=== PATIENT | female | born 1965 | race Caucasian/White ===

== ENCOUNTER 2019-04-04 08:21 | Outpatient (CLI) | payer OTHER ==
[2019-04-04 09:37] LABS: BASOPHILS % (AUTO) 0.4 % (0-1); EOSINOPHILS # (AUTO) 0.1 X10'3 (0-0.9); EOSINOPHILS % (AUTO) 2.2 % (0-6); HEMATOCRIT 43.2 % (35.0-45.0); HEMOGLOBIN 14.7 g/dl (12.0-16.0); LYMPHOCYTES # (AUTO) 1.4 X10'3 (1.1-4.8); MEAN CORPUSCULAR HEMOGLOBIN 32.4 PG (27.0-31.0); MEAN CORPUSCULAR HGB CONC 34.1 g/dL (33.0-36.5); MEAN PLATELET VOLUME 7.2 FL (7.4-10.4); MONOCYTES # (AUTO) 0.5 X10'3 (0-0.9); MONOCYTES % (AUTO) 9.6 % (2-12); NEUTROPHILS # (AUTO) 3.2 X10'3 (1.8-7.7); NEUTROPHILS % (AUTO) 61.8 % (42-75); PLATELET COUNT 296 X10'3 (140-440); RED BLOOD COUNT 4.55 X10'6 (4.20-5.60); RED CELL DISTRIBUTION WIDTH 13.4 % (11.5-14.5); WHITE BLOOD COUNT 5.2 X10'3 (4.5-11.0)
[2019-04-04 09:58] LABS: ALANINE AMINOTRANSFERASE 35 U/L (12-78); ALBUMIN 3.8 G/DL (3.4-5.0); ALBUMIN/GLOBULIN RATIO 1.1 (1.1-1.5); ALKALINE PHOSPHATASE 76 IU/L (46-116); ANION GAP 9 (8-16); ASPARTATE AMINO TRANSFERASE 20 U/L (10-37); BILIRUBIN,TOTAL 0.7 MG/DL (0.1-1.0); BLOOD UREA NITROGEN 14 MG/DL (7-18); BUN/CREATININE RATIO 14.9 (6.6-38.0); CALCIUM 8.3 MG/DL (8.5-10.1); CHLORIDE 108 MMOL/L (99-107); CHOL/HDL RATIO 3.3 (0.00-4.99); CHOLESTEROL 237 MG/DL (0-200); CREATININE 0.94 MG/DL (0.40-0.90); GLUCOSE 96 MG/DL (70-104); HDL CHOLESTEROL 72 MG/DL (35-60); LDL CHOLESTEROL 145 MG/DL (50-100); POTASSIUM 4.1 MMOL/L (3.5-5.1); SODIUM 141 MMOL/L (135-145); TOTAL CARBON DIOXIDE 24.3 MMOL/L (24-32); TOTAL PROTEIN 7.4 G/DL (6.4-8.2); TRIGLYCERIDES 131 MG/DL (20-135); eGFR 62 ML/MIN
[2019-04-04 15:06] LABS: CLARITY,URINE CLOUDY (Clear); COLOR,URINE YELLOW (Yellow); GLUCOSE, URINE NEGATIVE (Neg); KETONES,URINE NEGATIVE (Neg); LEUKOCYTE ESTERASE ,URINE NEGATIVE (Neg); NITRITES, URINE NEGATIVE (Neg); OCCULT BLOOD,URINE NEGATIVE (Neg); PH,URINE 7.5 (4.8-8.0); PROTEIN,URINE NEGATIVE (Neg); UROBILINOGEN,URINE 0.2 E.U/dL (0.2-1.0)
[2019-04-04 15:07] LABS: UA COLLECTION TYPE CLN CATCH MIDSTREAM
[2019-04-04 15:26] LABS: WBC,URINE 0-4 /HPF (0-4)
[2019-04-04 15:27] LABS: BACTERIA,URINE 1+ /HPF (Neg); MUCUS STRANDS FEW /LPF (Neg); RBC,URINE 0-2 /HPF (0-2); SQUAMOUS EPITHELIAL CELL,UR MODERATE /LPF (FEW)
[2019-04-04 15:28] LABS: AMORPHOUS PHOSPHATES 2+
== END 2019-04-04 23:59 | disposition home or self-care (01) ==
LOC: LAB 08:21
PROVIDERS: ATTEND Family Medicine
DX: R53.83 Other fatigue (principal); Z76.89 Persons encountering health services in other specified circumstances
CPT/HCPCS: 36415; 80053; 80061; 81001; 84439; 84443; 85025

== ENCOUNTER 2019-04-17 07:17 | Day surgery (SDC) | payer OTHER ==
[~2019-04-17] VITALS: Ht 162.6 cm; Wt 68.6 kg
[2019-04-17 07:25] VITALS: BP 125/75
[2019-04-17] MEDS ORDERED: LIDOcaine Viscous 15ml cup ONE (07:30)
[2019-04-17] MEDS ORDERED: MIDAZolam 5mg/5ml vial ONE (07:30)
[2019-04-17] MEDS ORDERED: fentaNYL/PF 50MCG/1 ML 2ML syringe ONE (07:30)
[2019-04-17] MEDS ORDERED: HORMONES (07:38)
[2019-04-17] MEDS ORDERED: TEST200V10 IM (07:39)
[2019-04-17] MEDS ORDERED: LORA10TA65 PO (07:39)
[2019-04-17] MEDS ORDERED: MULT-955 PO (07:40)
[2019-04-17 09:34] VITALS: BP 111/65
[2019-04-17 09:44] VITALS: BP 108/70
[2019-04-17 09:54] VITALS: BP 114/71
[2019-04-17 10:04] VITALS: BP 114/66
== END 2019-04-17 10:10 | disposition home or self-care (01) ==
LOC: GI LAB 07:17
PROVIDERS: ATTEND Internal Medicine Gastroenterology
DX: Z12.11 Encounter for screening for malignant neoplasm of colon (principal); K57.30 Diverticulosis of large intestine without perforation or abscess without bleeding; K64.8 Other hemorrhoids; K31.7 Polyp of stomach and duodenum; K21.9 Gastro-esophageal reflux disease without esophagitis; K29.50 Unspecified chronic gastritis without bleeding
CPT/HCPCS: 43239; 43251; 45378; 99152; 99153; C1773; J2250; J3010; J7040; A4620

== ENCOUNTER 2020-07-08 09:15 | Outpatient (CLI) | payer BC ==
[~2020-07-08 09:15] MED LIST: HORMONES; LORA10TA65 PO; MULT-955 PO; TEST200V10 IM
[2020-07-08 10:19] LABS: BASOPHILS % (AUTO) 0.5 % (0-1); EOSINOPHILS # (AUTO) 0.1 X10'3 (0-0.9); HEMATOCRIT 42.7 % (35.0-45.0); HEMOGLOBIN 14.7 g/dl (12.0-16.0); LYMPHOCYTES # (AUTO) 1.3 X10'3 (1.1-4.8); LYMPHOCYTES % (AUTO) 28.6 % (21-51); MEAN CORPUSCULAR HEMOGLOBIN 32.8 PG (27.0-31.0); MEAN CORPUSCULAR HGB CONC 34.3 g/dL (33.0-36.5); MEAN CORPUSCULAR VOLUME 95.6 FL (78-98); MEAN PLATELET VOLUME 7.3 FL (7.4-10.4); MONOCYTES # (AUTO) 0.5 X10'3 (0-0.9); MONOCYTES % (AUTO) 10.7 % (2-12); NEUTROPHILS # (AUTO) 2.6 X10'3 (1.8-7.7); NEUTROPHILS % (AUTO) 58.2 % (42-75); PLATELET COUNT 345 X10'3 (140-440); RED BLOOD COUNT 4.47 X10'6 (4.20-5.60); RED CELL DISTRIBUTION WIDTH 13.3 % (11.5-14.5); WHITE BLOOD COUNT 4.5 X10'3 (4.5-11.0)
[2020-07-08 10:24] LABS: HEMOGLOBIN A1C 5.6 % (4.5-6.2)
[2020-07-08 10:40] LABS: ALANINE AMINOTRANSFERASE 44 U/L (12-78); ALBUMIN 3.8 G/DL (3.4-5.0); ALKALINE PHOSPHATASE 104 IU/L (46-116); ANION GAP 6 (8-16); ASPARTATE AMINO TRANSFERASE 26 U/L (10-37); BLOOD UREA NITROGEN 13 MG/DL (7-18); BUN/CREATININE RATIO 14.3 (6.6-38.0); CALCIUM 8.5 MG/DL (8.5-10.1); CHLORIDE 106 MMOL/L (99-107); CREATININE 0.91 MG/DL (0.40-0.90); GLUCOSE 103 MG/DL (70-104); MAGNESIUM 2.2 MG/DL (1.5-2.4); POTASSIUM 4.1 MMOL/L (3.5-5.1); SODIUM 138 MMOL/L (135-145); TOTAL CARBON DIOXIDE 26.5 MMOL/L (24-32); TOTAL PROTEIN 7.5 G/DL (6.4-8.2); eGFR 64 ML/MIN
[2020-07-09 14:48] LABS: ESTRADIOL 75.6 pg/mL (.); PROGESTERONE 2.7 ng/mL (.); THIIODOTHRONINE, FREE, SERUM 9.5 pg/mL (2.0-4.4)
[2020-07-10 14:54] LABS: ACTH, PLASMA 24.8 pg/mL (7.2-63.3)
== END 2020-07-08 23:59 | disposition home or self-care (01) ==
LOC: LAB 09:15
PROVIDERS: ATTEND Anesthesiology
DX: E06.3 Autoimmune thyroiditis (principal); E06.9 Thyroiditis, unspecified; E03.9 Hypothyroidism, unspecified
CPT/HCPCS: 36415; 80053; 82024; 82306; 82670; 82679; 83036; 83735; 84144; 84439; 84443; 84481; 84482; 85025

== ENCOUNTER 2021-07-01 13:55 | Outpatient (CLI) | payer BC ==
[~2021-07-01 13:55] MED LIST changes: -TEST200V10 IM; +TEST200V33 IM
[2021-07-03 21:44] LABS: HBSAG SCREEN Negative (Negative); HEP A AB, IGM Negative (Negative); HEPATITIS C ANTIBODY <0.1 s/co ratio (0.0-0.9)
== END 2021-07-01 23:59 | disposition home or self-care (01) ==
LOC: LAB 13:55
PROVIDERS: ATTEND Obstetrics & Gynecology
DX: Z11.8 Encounter for screening for other infectious and parasitic diseases (principal); Z11.3 Encounter for screening for infections with a predominantly sexual mode of transmission; Z11.4 Encounter for screening for human immunodeficiency virus [HIV]
CPT/HCPCS: 36415; 80074; 86592; 86695; 86696; 86703; 87389

== ENCOUNTER 2021-07-08 07:30 | Outpatient (CLI) | payer BC ==
[2021-07-08 08:39] LABS: BASOPHILS % (AUTO) 0.4 % (0-1); HEMATOCRIT 43.6 % (35.0-45.0); LYMPHOCYTES # (AUTO) 1.1 X10'3 (1.1-4.8); MEAN CORPUSCULAR HEMOGLOBIN 33.5 PG (27.0-31.0); MEAN CORPUSCULAR HGB CONC 34.4 g/dL (33.0-36.5); MEAN CORPUSCULAR VOLUME 97.2 FL (78-98); MEAN PLATELET VOLUME 7.3 FL (7.4-10.4); MONOCYTES # (AUTO) 0.5 X10'3 (0-0.9); MONOCYTES % (AUTO) 10.5 % (2-12); NEUTROPHILS # (AUTO) 2.8 X10'3 (1.8-7.7); NEUTROPHILS % (AUTO) 63.1 % (42-75); PLATELET COUNT 358 X10'3 (140-440); RED BLOOD COUNT 4.49 X10'6 (4.20-5.60); RED CELL DISTRIBUTION WIDTH 13.7 % (11.5-14.5); WHITE BLOOD COUNT 4.4 X10'3 (4.5-11.0)
[2021-07-08 09:19] LABS: % IRON SATURATION 38 % (11-46); IRON 121 UG/DL (49-151); TOTAL IRON BINDING CAPACITY 321 UG/DL (259-388)
[2021-07-08 09:35] LABS: ALANINE AMINOTRANSFERASE 39 U/L (12-78); ALBUMIN 4.1 G/DL (3.4-5.0); ALBUMIN/GLOBULIN RATIO 1.1 (1.1-1.5); ALKALINE PHOSPHATASE 91 IU/L (46-116); ANION GAP 9 (8-16); ASPARTATE AMINO TRANSFERASE 20 U/L (10-37); BILIRUBIN,TOTAL 0.7 MG/DL (0.1-1.0); BLOOD UREA NITROGEN 13 MG/DL (7-18); BUN/CREATININE RATIO 13.1 (6.6-38.0); CALCIUM 8.7 MG/DL (8.5-10.1); CHLORIDE 103 MMOL/L (99-107); CREATININE 0.99 MG/DL (0.40-0.90); FERRITIN 168 NG/ML (8-252); GLUCOSE 93 MG/DL (70-104); LDL CHOLESTEROL 127 MG/DL (50-100); MAGNESIUM 2.4 MG/DL (1.5-2.4); POTASSIUM 4.2 MMOL/L (3.5-5.1); SODIUM 138 MMOL/L (135-145); TOTAL CARBON DIOXIDE 25.9 MMOL/L (24-32); eGFR 58 ML/MIN
[2021-07-08 09:43] LABS: CLARITY,URINE CLEAR (Clear); COLOR,URINE YELLOW (Yellow); GLUCOSE, URINE NEGATIVE (Neg); KETONES,URINE TRACE mg/dl (Neg); LEUKOCYTE ESTERASE ,URINE NEGATIVE (Neg); NITRITES, URINE NEGATIVE (Neg); OCCULT BLOOD,URINE NEGATIVE (Neg); PH,URINE 6.5 (4.8-8.0); PROTEIN,URINE NEGATIVE (Neg); UROBILINOGEN,URINE 0.2 E.U/dL (0.2-1.0)
[2021-07-08 09:49] LABS: UA COLLECTION TYPE CLN CATCH MIDSTREAM
[2021-07-08 09:55] LABS: HEMOGLOBIN A1C 5.3 % (4.5-6.2)
[2021-07-09 14:57] LABS: PROGESTERONE 2.4 ng/mL (.); THIIODOTHRONINE, FREE, SERUM 1.7 pg/mL (2.0-4.4)
== END 2021-07-08 23:59 | disposition home or self-care (01) ==
LOC: LAB 07:30
PROVIDERS: ATTEND Anesthesiology
DX: Z13.21 Encounter for screening for nutritional disorder (principal); E55.9 Vitamin D deficiency, unspecified; E28.0 Estrogen excess; E34.9 Endocrine disorder, unspecified; I10 Essential (primary) hypertension; R73.01 Impaired fasting glucose; R79.1 Abnormal coagulation profile; R68.89 Other general symptoms and signs; D50.9 Iron deficiency anemia, unspecified; R53.83 Other fatigue; R53.81 Other malaise
CPT/HCPCS: 36415; 80053; 81003; 82306; 82670; 82679; 82728; 83036; 83090; 83540; 83550; 83721; 83735; 84144; 84255; 84439; 84443; 84446; 84481; 84482; 84590; 84630; 85025; 86140

== ENCOUNTER 2021-11-24 13:19 | Outpatient (CLI) | payer BC ==
[2021-11-24 14:06] LABS: CLARITY,URINE SLIGHTLY CLOUDY (Clear); COLOR,URINE YELLOW (Yellow); GLUCOSE, URINE 100 mg/dl (Neg); KETONES,URINE NEGATIVE (Neg); LEUKOCYTE ESTERASE ,URINE LARGE (Neg); NITRITES, URINE POSITIVE (Neg); OCCULT BLOOD,URINE SMALL (Neg); PROTEIN,URINE 30 mg/dl (Neg)
[2021-11-24 14:15] LABS: UA COLLECTION TYPE CLN CATCH MIDSTREAM
[2021-11-24 14:16] LABS: WBC,URINE TNTC /HPF (0-4)
[2021-11-24 14:17] LABS: BACTERIA,URINE 4+ /HPF (Neg); MUCUS STRANDS NONE SEEN /LPF (Neg); SQUAMOUS EPITHELIAL CELL,UR FEW /LPF (FEW)
== END 2021-11-24 23:59 | disposition home or self-care (01) ==
LOC: LAB 13:19
PROVIDERS: ATTEND Anesthesiology
DX: R82.90 Unspecified abnormal findings in urine (principal); R82.79 Other abnormal findings on microbiological examination of urine
CPT/HCPCS: 81001; 87077; 87088; 87186

== ENCOUNTER 2022-04-15 06:57 | Outpatient (CLI) | payer BC ==
[2022-04-15 08:44] LABS: BASOPHILS % (AUTO) 0.4 % (0-1); EOSINOPHILS # (AUTO) 0.2 X10'3 (0-0.9); EOSINOPHILS % (AUTO) 2.7 % (0-6); HEMATOCRIT 43.9 % (35.0-45.0); HEMOGLOBIN 14.8 g/dl (12.0-16.0); LYMPHOCYTES # (AUTO) 1.4 X10'3 (1.1-4.8); LYMPHOCYTES % (AUTO) 22.3 % (21-51); MEAN CORPUSCULAR HGB CONC 33.8 g/dL (33.0-36.5); MEAN CORPUSCULAR VOLUME 97.6 FL (78-98); MEAN PLATELET VOLUME 7.7 FL (7.4-10.4); MONOCYTES # (AUTO) 0.6 X10'3 (0-0.9); MONOCYTES % (AUTO) 10.4 % (2-12); NEUTROPHILS % (AUTO) 64.2 % (42-75); PLATELET COUNT 315 X10'3 (140-440); RED CELL DISTRIBUTION WIDTH 13.1 % (11.5-14.5); WHITE BLOOD COUNT 6.2 X10'3 (4.5-11.0)
[2022-04-15 09:01] LABS: ALANINE AMINOTRANSFERASE 23 U/L (12-78); ALBUMIN 3.6 G/DL (3.4-5.0); ALBUMIN/GLOBULIN RATIO 1.1 (1.1-1.5); ALKALINE PHOSPHATASE 75 IU/L (46-116); ANION GAP 6 (8-16); ASPARTATE AMINO TRANSFERASE 20 U/L (10-37); BILIRUBIN,TOTAL 0.5 MG/DL (0.1-1.0); BLOOD UREA NITROGEN 13 MG/DL (7-18); BUN/CREATININE RATIO 13.8 (6.6-38.0); CALCIUM 8.1 MG/DL (8.5-10.1); CHLORIDE 107 MMOL/L (99-107); CHOL/HDL RATIO 3.3 (0.00-4.99); CHOLESTEROL 231 MG/DL (0-200); CREATININE 0.94 MG/DL (0.40-0.90); GLUCOSE 87 MG/DL (70-104); HDL CHOLESTEROL 71 MG/DL (35-60); LDL CHOLESTEROL 137 MG/DL (50-100); POTASSIUM 4.2 MMOL/L (3.5-5.1); SODIUM 139 MMOL/L (135-145); TOTAL CARBON DIOXIDE 25.7 MMOL/L (24-32); TRIGLYCERIDES 127 MG/DL (20-135); eGFR 62 ML/MIN
== END 2022-04-15 23:59 | disposition home or self-care (01) ==
LOC: LAB 06:57
PROVIDERS: ATTEND Internal Medicine
DX: E78.00 Pure hypercholesterolemia, unspecified (principal); E03.9 Hypothyroidism, unspecified; N95.1 Menopausal and female climacteric states; J30.9 Allergic rhinitis, unspecified; J45.990 Exercise induced bronchospasm; K63.5 Polyp of colon
CPT/HCPCS: 36415; 80053; 80061; 82607; 82746; 85025

== ENCOUNTER 2022-04-15 06:59 | Outpatient (CLI) | payer BC ==
[2022-04-15 09:04] LABS: HEMOGLOBIN A1C 5.5 % (4.5-6.2)
[2022-04-15 09:07] LABS: MAGNESIUM 2.3 MG/DL (1.5-2.4)
[2022-04-16 06:19] LABS: PROGESTERONE 3.5 ng/mL (.); THIIODOTHRONINE, FREE, SERUM 3.1 pg/mL (2.0-4.4)
[2022-04-24 16:19] LABS: VITAMIN K1 0.96 ng/mL (0.10-2.20)
== END 2022-04-15 23:59 | disposition home or self-care (01) ==
LOC: LAB 06:59
PROVIDERS: ATTEND Anesthesiology
DX: D50.9 Iron deficiency anemia, unspecified (principal); E55.9 Vitamin D deficiency, unspecified; E06.3 Autoimmune thyroiditis; R68.89 Other general symptoms and signs; R79.1 Abnormal coagulation profile; R73.01 Impaired fasting glucose; I10 Essential (primary) hypertension; E34.9 Endocrine disorder, unspecified; E28.0 Estrogen excess; E50.9 Vitamin A deficiency, unspecified; E56.0 Deficiency of vitamin E; E56.1 Deficiency of vitamin K
CPT/HCPCS: 36415; 82306; 82670; 82679; 83036; 83735; 84144; 84255; 84439; 84443; 84446; 84481; 84482; 84590; 84630

== ENCOUNTER 2022-04-15 07:00 | Outpatient (CLI) | payer BC ==
[2022-04-15 09:22] LABS: HIV ANTIBODY 1&2 RAPID NON-REACTIVE (Neg)
[2022-04-16 13:46] LABS: HBSAG SCREEN Negative (Negative); HEP A AB, IGM Negative (Negative)
== END 2022-04-15 23:59 | disposition home or self-care (01) ==
LOC: LAB 07:00
PROVIDERS: ATTEND Obstetrics & Gynecology
DX: Z11.3 Encounter for screening for infections with a predominantly sexual mode of transmission (principal); Z11.4 Encounter for screening for human immunodeficiency virus [HIV]; Z11.8 Encounter for screening for other infectious and parasitic diseases
CPT/HCPCS: 36415; 80074; 86592; 86695; 86696; 86703

== ENCOUNTER 2022-09-09 10:42 | Outpatient (CLI) | payer BC ==
[2022-09-09 11:38] LABS: ALANINE AMINOTRANSFERASE 26 U/L (12-78); ALBUMIN/GLOBULIN RATIO 1.1 (1.1-1.5); ALKALINE PHOSPHATASE 88 IU/L (46-116); ANION GAP 7 (8-16); ASPARTATE AMINO TRANSFERASE 20 U/L (10-37); BILIRUBIN,TOTAL 0.7 MG/DL (0.1-1.0); BLOOD UREA NITROGEN 11 MG/DL (7-18); BUN/CREATININE RATIO 11.6 (6.6-38.0); CALCIUM 8.5 MG/DL (8.5-10.1); CHLORIDE 103 MMOL/L (99-107); CHOL/HDL RATIO 3.1 (0.00-4.99); CHOLESTEROL 217 MG/DL (0-200); CREATININE 0.95 MG/DL (0.40-0.90); GLUCOSE 95 MG/DL (70-104); HDL CHOLESTEROL 70 MG/DL (35-60); LDL CHOLESTEROL 131 MG/DL (50-100); POTASSIUM 4.3 MMOL/L (3.5-5.1); SODIUM 137 MMOL/L (135-145); TOTAL CARBON DIOXIDE 27.2 MMOL/L (24-32); TOTAL PROTEIN 7.6 G/DL (6.4-8.2); TRIGLYCERIDES 114 MG/DL (20-135); eGFR 61 ML/MIN
[2022-09-09 11:47] LABS: EOSINOPHILS # (AUTO) 0.1 X10'3 (0-0.9); EOSINOPHILS % (AUTO) 2.1 % (0-6); HEMATOCRIT 45.2 % (35.0-45.0); HEMOGLOBIN 15.2 g/dl (12.0-16.0); LYMPHOCYTES # (AUTO) 1.2 X10'3 (1.1-4.8); LYMPHOCYTES % (AUTO) 25.1 % (21-51); MEAN CORPUSCULAR HEMOGLOBIN 32.4 PG (27.0-31.0); MEAN CORPUSCULAR HGB CONC 33.5 g/dL (33.0-36.5); MEAN CORPUSCULAR VOLUME 96.7 FL (78-98); MEAN PLATELET VOLUME 7.4 FL (7.4-10.4); MONOCYTES # (AUTO) 0.5 X10'3 (0-0.9); MONOCYTES % (AUTO) 11.6 % (2-12); NEUTROPHILS # (AUTO) 2.8 X10'3 (1.8-7.7); NEUTROPHILS % (AUTO) 60.2 % (42-75); PLATELET COUNT 343 X10'3 (140-440); RED BLOOD COUNT 4.68 X10'6 (4.20-5.60); RED CELL DISTRIBUTION WIDTH 13.4 % (11.5-14.5); WHITE BLOOD COUNT 4.7 X10'3 (4.5-11.0)
== END 2022-09-09 23:59 | disposition home or self-care (01) ==
LOC: LAB 10:42
PROVIDERS: ATTEND Internal Medicine
DX: E78.00 Pure hypercholesterolemia, unspecified (principal); E03.9 Hypothyroidism, unspecified; N95.1 Menopausal and female climacteric states; J30.9 Allergic rhinitis, unspecified; J45.990 Exercise induced bronchospasm; K63.5 Polyp of colon
CPT/HCPCS: 36415; 80053; 80061; 82607; 82746; 85025

== ENCOUNTER 2022-09-10 07:21 | Outpatient (CLI) | payer BC | END 2022-09-10 23:59 | disposition home or self-care (01) | LOC: LAB 07:21 | PROVIDERS: ATTEND Internal Medicine | DX: M54.50 Low back pain, unspecified (principal); M25.552 Pain in left hip; K57.90 Diverticulosis of intestine, part unspecified, without perforation or abscess without bleeding; E03.9 Hypothyroidism, unspecified; E78.00 Pure hypercholesterolemia, unspecified; N95.1 Menopausal and female climacteric states; J30.9 Allergic rhinitis, unspecified; K31.7 Polyp of stomach and duodenum; R63.5 Abnormal weight gain; Y93.23 Activity, snow (alpine) (downhill) skiing, snowboarding, sledding, tobogganing and snow tubing | CPT/HCPCS: 72100; 73502 ==

== ENCOUNTER 2023-01-13 07:20 | Outpatient (CLI) | payer BC ==
[2023-01-13 08:04] LABS: BASOPHILS % (AUTO) 0.6 % (0-1); EOSINOPHILS # (AUTO) 0.1 X10'3 (0-0.9); EOSINOPHILS % (AUTO) 2.7 % (0-6); HEMATOCRIT 44.2 % (35.0-45.0); HEMOGLOBIN 14.6 g/dl (12.0-16.0); LYMPHOCYTES # (AUTO) 1.3 X10'3 (1.1-4.8); LYMPHOCYTES % (AUTO) 25.7 % (21-51); MEAN CORPUSCULAR HEMOGLOBIN 32.4 PG (27.0-31.0); MEAN CORPUSCULAR HGB CONC 33.1 g/dL (33.0-36.5); MEAN CORPUSCULAR VOLUME 97.7 FL (78-98); MEAN PLATELET VOLUME 7.4 FL (7.4-10.4); MONOCYTES # (AUTO) 0.6 X10'3 (0-0.9); MONOCYTES % (AUTO) 11.1 % (2-12); NEUTROPHILS % (AUTO) 59.9 % (42-75); PLATELET COUNT 331 X10'3 (140-440); RED BLOOD COUNT 4.52 X10'6 (4.20-5.60); RED CELL DISTRIBUTION WIDTH 13.4 % (11.5-14.5); WHITE BLOOD COUNT 5.1 X10'3 (4.5-11.0)
[2023-01-13 08:22] LABS: HEMOGLOBIN A1C 5.4 % (4.5-6.2)
[2023-01-13 08:43] LABS: ALANINE AMINOTRANSFERASE 36 U/L (12-78); ALBUMIN 3.8 G/DL (3.4-5.0); ALBUMIN/GLOBULIN RATIO 1.1 (1.1-1.5); ALKALINE PHOSPHATASE 77 IU/L (46-116); ANION GAP 11 (8-16); ASPARTATE AMINO TRANSFERASE 22 U/L (10-37); BILIRUBIN,TOTAL 0.7 MG/DL (0.1-1.0); BLOOD UREA NITROGEN 13 MG/DL (7-18); BUN/CREATININE RATIO 13.4 (10.0-20.0); C-REACTIVE PROTEIN < 0.05 MG/DL (0.0-0.5); CALCIUM 8.8 MG/DL (8.5-10.1); CHLORIDE 102 MMOL/L (99-107); CREATININE 0.97 MG/DL (0.40-0.90); GLUCOSE 100 MG/DL (70-104); MAGNESIUM 2.1 MG/DL (1.5-2.4); POTASSIUM 3.9 MMOL/L (3.5-5.1); SODIUM 138 MMOL/L (135-145); TOTAL CARBON DIOXIDE 25.5 MMOL/L (24-32); TOTAL PROTEIN 7.4 G/DL (6.4-8.2); eGFR 59 ML/MIN
[2023-01-14 17:14] LABS: ESTRADIOL 90.8 pg/mL (.); PROGESTERONE 1.8 ng/mL (.); THIIODOTHRONINE, FREE, SERUM 3.8 pg/mL (2.0-4.4)
== END 2023-01-13 23:59 | disposition home or self-care (01) ==
LOC: LAB 07:20
PROVIDERS: ATTEND Anesthesiology
DX: I70.91 Generalized atherosclerosis (principal); E34.3 Short stature due to endocrine disorder; R79.82 Elevated C-reactive protein (CRP); E34.1 Other hypersecretion of intestinal hormones; R87.1 Abnormal level of hormones in specimens from female genital organs; N95.1 Menopausal and female climacteric states; R73.01 Impaired fasting glucose; N95.8 Other specified menopausal and perimenopausal disorders; E34.9 Endocrine disorder, unspecified; E02 Subclinical iodine-deficiency hypothyroidism
CPT/HCPCS: 36415; 80053; 82306; 82670; 82679; 83036; 83090; 83735; 83789; 84144; 84305; 84410; 84439; 84443; 84481; 84482; 85025; 86140

== ENCOUNTER 2023-01-25 10:17 | Day surgery (SDC) | payer BC ==
[2023-01-25] MEDS ORDERED: fentaNYL/PF 50MCG/1 ML 2ML syringe ONE (10:47)
[2023-01-25] MEDS ORDERED: LIDOcaine Viscous 15ml cup ONE (10:47)
[2023-01-25] MEDS ORDERED: MIDAZolam 1 MG/ML 5ML VIAL ONE (10:47)
[2023-01-25 10:53] VITALS: BP 129/74
[2023-01-25] MEDS ORDERED: PROG100C11 PO (10:55)
[2023-01-25] MEDS ORDERED: SYN0.088T PO (10:55)
[2023-01-25 13:25] VITALS: BP 108/71
[2023-01-25 13:35] VITALS: BP 111/72
[2023-01-25 13:45] VITALS: BP 120/64
[2023-01-25 13:55] VITALS: BP 113/69
[2023-01-26] MEDS ORDERED: LIOT50TA6 PO (13:14)
== END 2023-01-25 14:00 | disposition home or self-care (01) ==
LOC: GI LAB 10:17
PROVIDERS: ATTEND Internal Medicine Gastroenterology
DX: R10.9 Unspecified abdominal pain (principal); R11.0 Nausea; K62.1 Rectal polyp; K57.30 Diverticulosis of large intestine without perforation or abscess without bleeding; K64.8 Other hemorrhoids; K31.7 Polyp of stomach and duodenum; K29.70 Gastritis, unspecified, without bleeding; Z86.010 Personal history of colon polyps
CPT/HCPCS: 43239; 43251; 45380; 45385; 99152; 99153; C1889; J2250; J3010; J7030; Z7512; A4620

== ENCOUNTER 2024-03-17 07:01 | Emergency (ER) | payer BC ==
[~2024-03-17] VITALS: Ht 160 cm; Wt 72.1 kg
[~2024-03-17 07:01] MED LIST changes: +LIOT50TA6 PO; +PROG100C11 PO
[2024-03-17 07:05] VITALS: BP 123/84; PULSE 76; RESP 18; TEMP 97.8; O2SAT 99
== END 2024-03-17 07:58 | disposition home or self-care (01) ==
LOC: ER 07:01
DX: S90.32XA Contusion of left foot, initial encounter (principal); Z79.899 Other long term (current) drug therapy; X58.XXXA Exposure to other specified factors, initial encounter; Y93.89 Activity, other specified; Y92.89 Other specified places as the place of occurrence of the external cause; Y99.8 Other external cause status
CPT/HCPCS: 73630; 99283

== ENCOUNTER 2024-04-13 08:09 | Outpatient (CLI) | payer BC ==
[2024-04-13 09:10] LABS: BASOPHILS % (AUTO) 0.6 % (0-1); BILIRUBIN,URINE NEGATIVE (Neg); CLARITY,URINE SLIGHTLY CLOUDY (Clear); COLOR,URINE YELLOW (Yellow); EOSINOPHILS # (AUTO) 0.1 X10'3 (0-0.9); EOSINOPHILS % (AUTO) 2.7 % (0-6); GLUCOSE, URINE NEGATIVE (Neg); HEMATOCRIT 45.3 % (35.0-45.0); HEMOGLOBIN 15.2 g/dl (12.0-16.0); KETONES,URINE NEGATIVE (Neg); LEUKOCYTE ESTERASE ,URINE NEGATIVE (Neg); LYMPHOCYTES # (AUTO) 1.1 X10'3 (1.1-4.8); LYMPHOCYTES % (AUTO) 28.1 % (21-51); MEAN CORPUSCULAR HEMOGLOBIN 32.9 PG (27.0-31.0); MEAN CORPUSCULAR HGB CONC 33.5 g/dL (33.0-36.5); MEAN PLATELET VOLUME 7.4 FL (7.4-10.4); MONOCYTES # (AUTO) 0.4 X10'3 (0-0.9); MONOCYTES % (AUTO) 10.7 % (2-12); NEUTROPHILS # (AUTO) 2.3 X10'3 (1.8-7.7); NEUTROPHILS % (AUTO) 57.9 % (42-75); NITRITES, URINE NEGATIVE (Neg); OCCULT BLOOD,URINE NEGATIVE (Neg); PH,URINE 7.5 (4.8-8.0); PLATELET COUNT 288 X10'3 (140-440); PROTEIN,URINE NEGATIVE (Neg); RED BLOOD COUNT 4.62 X10'6 (4.20-5.60); RED CELL DISTRIBUTION WIDTH 13.3 % (11.5-14.5); UROBILINOGEN,URINE 0.2 E.U/dL (0.2-1.0)
[2024-04-13 09:21] LABS: UA COLLECTION TYPE CLN CATCH MIDSTREAM
[2024-04-13 09:22] LABS: BACTERIA,URINE 2+ /HPF (Neg); RBC,URINE 0-2 /HPF (0-2); SQUAMOUS EPITHELIAL CELL,UR MANY /LPF (FEW); WBC,URINE 0-4 /HPF (0-4)
[2024-04-13 09:42] LABS: HEMOGLOBIN A1C 5.4 % (4.5-6.2)
[2024-04-13 09:52] LABS: ALANINE AMINOTRANSFERASE 30 U/L (12-78); ALBUMIN 3.8 G/DL (3.4-5.0); ALKALINE PHOSPHATASE 87 IU/L (46-116); ANION GAP 6 (8-16); ASPARTATE AMINO TRANSFERASE 20 U/L (10-37); BILIRUBIN,TOTAL 0.6 MG/DL (0.1-1.0); BLOOD UREA NITROGEN 16 MG/DL (7-18); BUN/CREATININE RATIO 16.2 (10.0-20.0); CALCIUM 8.7 MG/DL (8.5-10.1); CHLORIDE 107 MMOL/L (99-107); CREATININE 0.99 MG/DL (0.40-0.90); FREE T4 (FREE THYROXINE) 0.47 NG/DL (0.73-1.40); GLUCOSE 89 MG/DL (70-104); MAGNESIUM 2.2 MG/DL (1.5-2.4); POTASSIUM 4.5 MMOL/L (3.5-5.1); SODIUM 139 MMOL/L (135-145); TOTAL CARBON DIOXIDE 26.3 MMOL/L (24-32); TOTAL PROTEIN 7.6 G/DL (6.4-8.2); eGFR 58 ML/MIN
[2024-04-13 10:47] LABS: THYROID STIMULATING HORMONE 0.14 ulU/ml (0.34-4.50)
[2024-04-14 06:35] LABS: HBSAG SCREEN Negative (Negative); HEP A AB, IGM Negative (Negative); HEP B CORE AB, IGM Negative (Negative); HEPATITIS C VIRUS ANTIBODY Non Reactive (Non Reactive)
[2024-04-14 08:15] LABS: HOMOCYSTEINE, PLASMA 11.4 umol/L (0.0-14.5); VITAMIN D, 25-HYDROXY 41.1 ng/mL (30.0-100.0)
[2024-04-14 11:13] LABS: ESTRADIOL 52.7 pg/mL (.); THIIODOTHRONINE, FREE, SERUM 3.3 pg/mL (2.0-4.4)
[2024-04-18 07:18] LABS: HSV 1 PCR Negative (Negative); HSV 2 PCR Negative (Negative)
== END 2024-04-13 23:59 | disposition home or self-care (01) ==
LOC: LAB 08:09
PROVIDERS: ATTEND Anesthesiology
DX: Z13.21 Encounter for screening for nutritional disorder (principal); E06.3 Autoimmune thyroiditis; E06.9 Thyroiditis, unspecified; R53.81 Other malaise; R73.01 Impaired fasting glucose; D50.9 Iron deficiency anemia, unspecified; R79.1 Abnormal coagulation profile; I10 Essential (primary) hypertension; E34.9 Endocrine disorder, unspecified; E28.0 Estrogen excess; E55.9 Vitamin D deficiency, unspecified
CPT/HCPCS: 36415; 80053; 80074; 81001; 82306; 82670; 82672; 83036; 83090; 83735; 83789; 84144; 84439; 84443; 84481; 84482; 85025; 86140; 87389; 87529

== ENCOUNTER 2025-04-03 06:32 | Outpatient (CLI) | payer BC ==
[2025-04-03 08:16] LABS: MEAN PLATELET VOLUME 7.1 FL (7.4-10.4); RED CELL DISTRIBUTION WIDTH 13.9 % (11.5-14.5)
[2025-04-03 08:35] LABS: % IRON SATURATION 34 % (11-46)
[2025-04-03 08:43] LABS: CREATININE 1.11 MG/DL (0.40-0.90); TOTAL CARBON DIOXIDE 26.9 MMOL/L (24-32); eGFR 50 ML/MIN
[2025-04-04 15:13] LABS: ESTRADIOL 45.6 pg/mL (.); PROGESTERONE 4.9 ng/mL (.); THIIODOTHRONINE, FREE, SERUM 3.1 pg/mL (2.0-4.4); THYROID PEROXIDASE AB 20 IU/mL (0-34)
[2025-04-05 05:12] LABS: CORTISOL LC 11.7 ug/dL (6.2-19.4); VITAMIN D, 25-HYDROXY 54.4 ng/mL (30.0-100.0)
[2025-04-05 17:30] LABS: ACTH, PLASMA 27.2 pg/mL (7.2-63.3)
== END 2025-04-03 23:59 | disposition home or self-care (01) ==
LOC: RAD 06:32
PROVIDERS: ATTEND Anesthesiology
DX: D50.9 Iron deficiency anemia, unspecified (principal); R73.01 Impaired fasting glucose; E06.3 Autoimmune thyroiditis; E06.9 Thyroiditis, unspecified; E03.9 Hypothyroidism, unspecified; E61.2 Magnesium deficiency; E87.6 Hypokalemia; R78.2 Finding of cocaine in blood; I70.91 Generalized atherosclerosis; R79.82 Elevated C-reactive protein (CRP); R94.6 Abnormal results of thyroid function studies; E34.9 Endocrine disorder, unspecified; E34.30 Short stature due to endocrine disorder, unspecified; E50.9 Vitamin A deficiency, unspecified; E53.8 Deficiency of other specified B group vitamins; E55.9 Vitamin D deficiency, unspecified; Z13.21 Encounter for screening for nutritional disorder; E56.1 Deficiency of vitamin K; E56.0 Deficiency of vitamin E; R82.90 Unspecified abnormal findings in urine; I10 Essential (primary) hypertension; N95.9 Unspecified menopausal and perimenopausal disorder; R94.4 Abnormal results of kidney function studies; E56.9 Vitamin deficiency, unspecified
CPT/HCPCS: 36415; 80053; 82024; 82306; 82607; 82670; 82679; 82728; 82746; 83036; 83540; 83550; 83735; 83789; 84144; 84305; 84410; 84432; 84439; 84443; 84446; 84481; 84482; 84590; 85025; 86140; 86376; 86800